=== PATIENT | female | born 1960 | race American Indian/Alaskan Native ===

== ENCOUNTER 2018-12-12 05:18 | Emergency (ER) | payer OTHER ==
[2018-12-12 05:26] VITALS: BP 152/74
--- NOTE | 2018-12-12 07:51 | Emergency Department Report ---
ED Lower Extremity HPI - General Chief Complaint: Extremity Problem,Nontraumatic Stated Complaint: RIGHT LEG PAIN Time Seen by Provider: 12/12/18 07:47 Source: patient, family Mode of arrival: Ambulatory Limitations: No Limitations - History of Present Illness Initial Comments: Patient reports right knee pain that started three days ago. She denies recent travel, surgery, chest pain, difficulty breathing, active cancer, bedridden, calf swelling, leg swelling, pitting edema, paresis or localized TTP along deep venous system Complaint: other (right knee) Onset/Timin -: days(s) Injury: Knee: Right Type of Injury: other (none) Place: home Severity: severe Severity scale (0 -10): 10 Improves With: rest Worsens With: weight bearing Context: other (none) Other Symptoms: other (none) Associated Symptoms: able to partially bear weight Treatments Prior to Arrival: NSAIDS - Related Data Previous Rx's Medication Instructions Recorded Last Taken Type traMADol [Ultram] 50 mg PO Q6HR PRN #20 tablet 09/11/15 Unknown Rx Diclofenac Sodium 75 mg PO BID #20 tablet.dr 12/12/18 Unknown Rx Prednisone [predniSONE 10 mg 10 mg PO .TAPER #1 tab.ds.pk 12/12/18 Unknown Rx (6-Day Pack, 21 Tabs)] Allergies Allergy/AdvReac Type Severity Reaction Status Date / Time contact metal agent Allergy Unknown Verified 09/11/15 07:54 ED Review of Systems ROS: Stated complaint: RIGHT LEG PAIN Other details as noted in HPI Constitutional: denies: chills, fever Eyes: denies: eye pain, eye discharge, vision change ENT: denies: ear pain, throat pain Respiratory: denies: cough, shortness of breath, wheezing Cardiovascular: denies: chest pain, palpitations Endocrine: no symptoms reported Gastrointestinal: denies: abdominal pain, nausea, vomiting, diarrhea, constipation, hematemesis, melena Genitourinary: denies: urgency, dysuria, discharge Musculoskeletal: arthralgia (right knee). denies: back pain, joint swelling Skin: denies: rash, lesions Neurological: denies: headache, weakness, paresthesias Psychiatric: denies: anxiety, depression Hematological/Lymphatic: denies: easy bleeding, easy bruising ED Past Medical Hx - Past Medical History Previous Medical History?: Yes Hx Hypertension: Yes Hx Diabetes: Yes - Surgical History Past Surgical History?: No - Social History Smoking Status: Never Smoker Substance Use Type: None - Medications Home Medications: Home Medications Medication Instructions Recorded Confirmed Last Taken Type traMADol [Ultram] 50 mg PO Q6HR PRN #20 tablet 09/11/15 Unknown Rx Diclofenac Sodium 75 mg PO BID #20 tablet. 12/12/18 Unknown Rx Prednisone [predniSONE 10 mg 10 mg PO .TAPER #1 tab.ds.pk 12/12/18 Unknown Rx (6-Day Pack, 21 Tabs)] ED Physical Exam - General Limitations: No Limitations General appearance: alert, in no apparent distress - Respiratory Respiratory exam: Present: normal lung sounds bilaterally. Absent: respiratory distress, wheezes, rales, rhonchi, stridor, accessory muscle use, decreased breath sounds, prolonged expiratory - Cardiovascular Cardiovascular Exam: Present: bradycardia, normal heart sounds. Absent: tachycardia, irregular rhythm, systolic murmur, diastolic murmur, rubs, gallop - Expanded Lower Extremity Exam Right Hip exam: Present: normal inspection, full ROM Upper Leg exam: Present: normal inspection, full ROM Knee exam: Present: full ROM, tenderness (patella). Absent: swelling, abrasion, laceration, ecchymosis, deformity, crepidus, dislocation, erythema, effusion, pain w/ pronation/supination, posterior draw sign, pain/laxity with valgus, pain/laxity with varus, full knee extension Lower Leg exam: Present: normal inspection, full ROM Ankle exam: Present: normal inspection, full ROM Foot/Toe exam: Present: normal inspection, full ROM Neuro vascular tendon exam: Present: no vascular compromise. Absent: pulse deficit, abnormal cap refill, motor deficit, sensory deficit, tendon deficit, extremity cold to touch, pallor, abnormal 2-point discrimination, decreased fine/light touch, foot drop, peroneal nerve deficit, significant pain with passive ROM of distal joint Gait: Positive: not tested/not observed - Neurological Exam Neurological exam: Present: alert, oriented X3, CN II-XII intact, normal gait, reflexes normal. Absent: motor sensory deficit - Psychiatric Psychiatric exam: Present: normal affect, normal mood - Skin Skin exam: Present: warm, dry, intact, normal color. Absent: rash ED Course Vital Signs 12/12/18 05:25 Temperature 99.0 F Pulse Rate 57 L Respiratory 20 Rate Blood Pressure 152/74 O2 Sat by Pulse 97 Oximetry ED Lower Extremity MDM - Lab Data Vital Signs 12/12/18 05:25 Temperature 99.0 F Pulse Rate 57 L Respiratory 20 Rate Blood Pressure 152/74 O2 Sat by Pulse 97 Oximetry - Medical Decision Making During the course of ED, all other systems were unremarkable except for documentation in HPI. According to the Wells' criteria for DVT, patient score was a zero-low risk. She was sent home with prescriptions for prednisone and Diclofenac Sodium, instructed to follow up selective referral given at discharge, she verbalized understanding - Differential Diagnosis Right Knee Pain, DVT Critical care attestation.: If time is entered above; I have spent that time in minutes in the direct care of this critically ill patient, excluding procedure time. ED Disposition Clinical Impression: Right knee pain Qualifiers: Chronicity: acute Qualified Code(s): M25.561 - Pain in right knee Disposition: DC-01 TO HOME OR SELFCARE Is pt being admited?: No Does the pt Need Aspirin: No Condition: Stable Instructions: Arthralgia (ED) Additional Instructions: Take medication as directed. Follow up with selective referral given at dis charge. Return back to the ED for worsening symptoms or concerns Prescriptions: Diclofenac Sodium 75 mg PO BID #20 tablet. Prednisone [predniSONE 10 mg (6-Day Pack, 21 Tabs)] 10 mg PO .TAPER #1 tab.ds.pk Referrals: PRIMARY MD ALEXANDRA [Primary Care Provider] - 3-5 Days GISELLA REGALADO MD [Staff Physician] - 3-5 Days Time of Disposition: 07:58
== END 2018-12-12 08:08 | disposition home or self-care (01) ==
LOC: ED 05:18
DX: M25.561 Pain in right knee (principal); I10 Essential (primary) hypertension; E11.9 Type 2 diabetes mellitus without complications; Z79.899 Other long term (current) drug therapy
CPT/HCPCS: 99282